=== PATIENT | female | born 1980 | race Caucasian/White ===

== ENCOUNTER 2017-07-14 19:12 | Outpatient (CLI) | payer MEDICAID ==
[~2017-07-14] VITALS: Ht 157.5 cm; Wt 73.0 kg
[~2017-07-14 19:12] MED LIST: AUG875 PO; FERG324 PO; NO RTN MEDS
[2017-07-14 19:47] VITALS: BP 105/61; Ht 157.5 cm; Wt 73.0 kg
[2017-07-14] MEDS ORDERED: PREN-127 PO (20:09)
== END 2017-07-14 20:25 | disposition home or self-care (01) ==
LOC: OB 19:12 → L&D 19:12 → OB 19:12 → UNDOADMIN 19:12 → UNDODISIN 20:25 → L&D 20:25 → EDSTATUS 07-15 11:04
PROVIDERS: ATTEND Obstetrics & Gynecology
DX: O26.893 Other specified pregnancy related conditions, third trimester (principal); Z3A.37 37 weeks gestation of pregnancy
CPT/HCPCS: 84112; G0463; 99213

== ENCOUNTER 2017-07-27 10:59 | Outpatient (CLI) | payer MEDICAID ==
[~2017-07-27] VITALS: Ht 157.5 cm; Wt 72.6 kg
[~2017-07-27 10:59] MED LIST changes: +PREN-127 PO
[2017-07-27 11:44] VITALS: BP 103/66; Ht 157.5 cm; Wt 72.6 kg
== END 2017-07-27 13:20 | disposition home or self-care (01) ==
LOC: UNDOADMIN 10:59 → OB 10:59 → L&D 10:59 → UNDODISIN 13:20 → L&D 13:20 → EDSTATUS 08-01 07:14
PROVIDERS: ATTEND Student in an Organized Health Care Education/Training Program
DX: O26.893 Other specified pregnancy related conditions, third trimester (principal); Z3A.39 39 weeks gestation of pregnancy
CPT/HCPCS: 84112; G0463; 99213

== ENCOUNTER 2017-07-29 05:06 | Inpatient (IN) | payer MEDICAID ==
[~2017-07-29] VITALS: Ht 157.5 cm; Wt 72.6 kg
[2017-07-29] MEDS ORDERED: FAMOTIDINE(*) 20MG/50ML PREMIX 50 ML IVPB PRN (05:08)
[2017-07-29] MEDS ORDERED: OXYTOCIN 30 UNIT/D5LR 500 ML 500 ML IV PRN ×2 (05:08)
[2017-07-29] MEDS ORDERED: ceFAZolin(*) 2GM/D5W 50ML 50 ML IVPB PRN (05:08)
[2017-07-29] MEDS ORDERED: METOCLOPRAMIDE 10 MG/2 ML SDV IVP PRN (05:10)
[2017-07-29] MEDS ORDERED: TERBUTALINE SULF 1 MG/ML VIAL SUBQ PRN (05:10)
[2017-07-29] MEDS ORDERED: LIDOCAINE/SOD BICARB 8.4% SYR SC PRN (05:10)
[2017-07-29] MEDS ORDERED: fentaNYL CITR 100 MCG/2 ML AMP IVP PRN (05:10)
[2017-07-29] MEDS ORDERED: cefOXitin/DEX(*) 2GM/50ML PREM 50 ML IVPB PRN (05:10)
[2017-07-29] MEDS ORDERED: LIDOCAINE 1% LOCAL 300 MG/30ML INJ PRN ×2 (05:10)
[2017-07-29] MEDS: LR(*) 1000 ML BAG 1,000 ML IV SCH ×2 (05:49→10:38)
[2017-07-29 06:00] VITALS: BP 105/60; Ht 157.5 cm; Wt 72.6 kg
[2017-07-29] MEDS ORDERED: PENICILLIN G 5 MILLUN/100 ML 100 ML IVPB ONE (06:00)
[2017-07-29 06:03] LABS: PLATELET COUNT, AUTOMATED 226 K/uL (150-450)
[2017-07-29] MEDS ORDERED: BUPIVACAINE 0.25% MPF INJ EPI PRN (07:40)
[2017-07-29] MEDS ORDERED: fentaNYL CITR 100 MCG/2 ML AMP IT PRN (07:40)
[2017-07-29] MEDS ORDERED: FENTANYL/ROPIVACAINE 100 ML BAG EPI PRN (07:40)
[2017-07-29] MEDS ORDERED: LIDOCAINE/PF 2% 200MG/10ML AMP 200 MG/10 ML AMPUL EPI PRN (07:40)
[2017-07-29] MEDS ORDERED: BUPIVACAINE 0.5% INJ 30ML VIAL EPI PRN (07:40)
[2017-07-29] MEDS ORDERED: LIDO/EPI 2% MPF 1:200,000 20ML EPI PRN (07:40)
[2017-07-29] MEDS ORDERED: EPIDURAL KEYS XX PRN (08:00)
--- NOTE | 2017-07-29 08:33 | History & Physical ---
History of Present Illness Age of Patient: 36 : 5 Para or TPAL: 2021 EDC per LMP: Aug 01, 2017 EDC per U/S: Jul 30, 2017 Estimated Gestational Age: 39.4 Chief Complaint Contractions History of Present Illness Pt is a 36 y/o @ 39-4/7 weeks gestation who presents to L&D for an Elective IOL. Pt does report painful contractions since Saturday but her cervical exam is unchanged from Saturday. Pt denies any loss of amniotic fluid. Good movement. No vaginal bleeding. History Patient's Blood Type: A Positive Rubella Status: Immune Group B Strep Screen: Positive Obstetrical History: X 2 Past Medical History: Non contributory. Allergies: Coded Allergies: No Known Allergies (Verified Allergy, Mild, 09/18/10) Social History: Denies X 3. . Lives in [facility] Home Meds Reported Medications Vits W-Ca,Fe,Fa(<1MG) ( VITAMINS) 1 Each Tablet, 1 EACH PO DAILY, TAB 07/14/17 Review of Systems All Systems Reviewed/Normal: Yes, Except as Noted Constitutional: No Fever, No Weight Loss, No Weight Gain, No Chills, No Night Sweats, No Other Neurological: No Syncope, No Confusion, No Weakness, No Dizziness, No Slurred Speech, No Other Eyes: No Vision Change, No Loss of Vision, No Photophobia, No Other ENT: No Hearing Loss, No Sinus Congestion, No Sore Throat, No Ear Ache, No Tinnitus, No Other Cardiovascular: No Chest Pain, No Palpitations, No Orthostatic Hypotension, No Other Respiratory: No Shortness of Breath, No Cough, No Wheezing, No Other Gastrointestinal: No Nausea, No Vomiting, No Diarrhea, No Dysphagia, No Constipation, No Early Satiety, No Hematemesis, No Hematochezia, No Melena, No Abdominal Pain, No Other Genitourinary: No Dysuria, No Hematuria, No Urinary Incontinence, No Other Musculoskeletal: No Pain, No Sprain, No Strain, No Impaired Mobility, No Other Psychiatric: No Depression, No Anxiety, No Other Exam General Exam Vital Signs Vital Signs Date Time Temp Pulse Resp B/P (MAP) Pulse Ox O2 Delivery O2 Flow Rate FiO2 07/29/17 06:00 98.2 89 16 105/60 (75) 96 Room Air General Apperance: Alert/Awake/No Acute Distress Neuro: No Gross deficits Eyes: Normal Extraocular Movement & Vison, PERRLA ENT: Normal Cardiovascular: Regular Rate and Rhythm Respiratory: No Respiratory Distress, Clear to Auscultation Abdomen: Soft, Non-Tender, Non-Distended, Gravid - Non-Tender : Normal Musculoskeletal: No Weakness/Pain Extremities: No Cyanosis,Clubbing or Edema Integumentary: Skin Intact without Lesions or Rash Psychological: Alert & Oriented X3, Appropriate Mood & Affect Vaginal Discharge/Fluid?: Clear Fluid Cervical Dialation: 4 Cervical Effacement (%): 50 Cervical Consistency: Moderate Cervical Position: Mid Station: -2 Presentation: Vertex Uterine Contractions(Q min): 2 Uterine Contraction Strength: Moderate UC Resting Tone: Soft Fetus Feeling Movement?: Yes Estimated Weight(grams): 3000 Heart Tones: 145 Heart Tone Variabilty: Moderate FHT Accelerations: 15X15 FHT Decelerations: None FHT Category: I Medical Decision Making Data Points Result Diagram: 07/29/17 0544 Pre-Admit Course Medical Record Review: Yes VTE Prophylasis: Adult Deep Vein Thrombosis/Pulmonary: No Assessment and Plan PHARMACY MANAGER Assessment: Stable Problems: (1) Elective induction of labor planned Assessment & Plan: Currently on 4 mU/min of oxytocin and s/p amniotomy. Clear fluid, small amount. (2) Group B streptococcal carriage complicating Assessment & Plan: Pt has already received PCN X 1 dose. Will continue every 4 hours. ANSELMO WILSON DO Jul 29, 2017 08:33
[2017-07-29] MEDS: PENICILLIN G 2.5 MILLUN/100 ML 100 ML IVPB SCH ×2 (09:33→13:59)
--- NOTE | 2017-07-29 13:53 | Anesthesia OB Pre-Anes Eval ---
History of Present Illness Anesthesia Start Date: Jul 29, 2017 Anesthesia Start Time: 10:40 OB Anesthesia Diagnosis: induction - elective Complications: None known EDC: Aug 01, 2017 : 5 Para: 2 Vital Signs: Vital Signs Date Time Temp Pulse Resp B/P (MAP) Pulse Ox O2 Delivery O2 Flow Rate FiO2 07/29/17 06:00 98.2 89 16 105/60 (75) 96 Room Air Pain Ratin Heart Tones: WNL Result Diagram: 07/29/17 0544 Height (Inches): 62.00 Weight (Pounds): 160 BMI Calculated: 29.26 Past Medical History Medical History: no pertinent history Surgical History: no surgical history Attended Childbirth Classes?: No Hx Anesthesia Reactions: No Hx Family Anesthesia Reaction: No Current Medications: pitocin Home Meds Reported Medications Vits W-Ca,Fe,Fa(<1MG) ( VITAMINS) 1 Each Tablet, 1 EACH PO DAILY, TAB 07/14/17 Allergies: Coded Allergies: No Known Allergies (Verified Allergy, Mild, 09/18/10) Anesthesia OB ROS Neurological: No migraines/headaches, No seizures, No neuropathy ENT: Denies Tooth caps, Denies Loose teeth, Denies Chipped teeth, Denies Dentures, Denies Bridges, Denies Retainers, Denies Veneers, Denies Implants, Denies Tongue ring Pulmonary: No asthma, No smoker (pks/day/yrs) Airway Class: ll Cardiovascular ROS: No edema, No arrhythmia GI ROS: clear liquids Last Solids Date: Jul 29, 2017 Last Solids Time: 05:00 ROS: No Herpes, No STD(s), No Liver Disease, No Renal Disease Endocrine ROS: No diabetes, No gestational diabetes, No thyroid disorder Musculoskeletal ROS: No low back pain, No low back injury, No scoliosis ASA Classification: 2 Assessment and Plan Anesthesia Plan: CSE Assessment Past Medical, Surgical, Family and Obstetric Histories reviewed. Please see ACOG chart. Epidural anesthesia risks, complications and benefits explained to patient's satisfaction for labor and vaginal delivery and/or section. General anesthesia risks and benefits explained to patient's satisfaction. Questions invited, none asked. Pt. states she is very afraid of needles. LESLEY SANTORO CRNA Jul 29, 2017 13:53
--- NOTE | 2017-07-29 13:56 | Procedure Note ---
Anesthetic Placement Note Anesthesia Plan: CSE Permit for Anesthesia Signed: Yes Anesthesia Technique: Patient Sitting Anesthesia Prep: Chlorhexidine Interspace: L 3-4 Local Anesthetic: 1% Lidocaine, 25 Gauge Needle Amount Local - cc's: 2 Anesthesia Needle: 17g Touhy/Schliff Anesthesia Attempts: 1 Loss of Resistance: Air Depth of LOS (cm): 5 Epidural Needle Placement: No CSF, No Blood, No Parasthesia Intrathecal Needle: 27 Gauge Pencan Cerebral Spinal Fluid: Yes, Clear Catheter Insertion (cm): 7 Catheter Type: Valero - Spring Wound Epidural Dressing: Tegaderm, Adhesive Jefferson Anesthesia Tray: Lot Number ([id number]), Expiration Date, Reference Number ( [id number]) Anesthesia Medications: Intrathecal Dose: mcg Fentanyl (15), mg Marcaine MPF (1.75), Time (1102) Epidural Test Dose: 1.5 Lido/Epi (1:200,000), Dose - mL (2), Time (1132), Negative Epidural Loading Dose: 0.2% Ropivicaine, With Fentanyl 2mcg/ml, Dose - ml (5), Time (1132) Epidural Infusion: 0.2% Ropivicaine, With Fentanyl 2mcg/ml, Start Time: (1132) Epidural Pump Setting: Bolus Dose - mL, Lockout - Minutes (20), Maintenance Rate - mL/hr (4), Maximum per Hour - mL (19) Complications: None Comment: Vital signs stable. Patient comfortable and condition stable. LESLEY SANTORO CRNA Jul 29, 2017 13:56
--- NOTE | 2017-07-29 13:58 | Anesthesia Progress Note ---
Progress/Maintenance Anesthesia Note Date: Jul 29, 2017 Anesthesia Note Time: 13:30 Pain Intensity: 1 Pump: On Pump Rate (ML/HR): 4 Sensory Level: T-12 Motor Level: Bending Knees-Bilateral Dilatation: 10 Position: Left, Tilt Drug Bolus: 0.5% Marcaine (3ml), Other (Fentenyl 50 mcgs) Assessment and Plan Assessment Bolus for laboring down and delivery given. Pt. feeling strong pressure. LESLEY SANTORO CRNA Jul 29, 2017 13:58
[2017-07-29] MEDS ORDERED: HYDROCORTISONE 2.5% CR 30GM TB PR PRN (15:20)
[2017-07-29] MEDS ORDERED: MAGNESIUM HYDROXIDE* 30ML UDCP PO PRN (15:20)
[2017-07-29] MEDS ORDERED: LANOLIN OINT 7 GM TUBE TP PRN (15:20)
[2017-07-29] MEDS ORDERED: GLYCERIN/WITCH HAZEL LEAF 1 PK TP PRN (15:20)
[2017-07-29] MEDS ORDERED: APAP/HYDROCODONE 325/5 TAB PO PRN (15:20)
[2017-07-29] MEDS ORDERED: BENZOCAINE 20% 60 ML BTL TP PRN (15:20)
[2017-07-29] MEDS ORDERED: ACETAMINOPHEN 325 MG TAB PO PRN (15:20)
--- NOTE | 2017-07-29 15:38 | OB Delivery Note ---
Delivery Note Vaginal Delivery Type: Spont. Vaginal Delivery Delivery Date: Jul 29, 2017 Delivery Time: 14:56 Estimated Gestational Age(wks): 39.4 Length of Labor Stage I (hrs): 9 Length of Labor Stage II (hrs): 1 Labor Stage III (minutes): 9 Delivery Anesthesia: Epidural Infant Sex: Female Infant Weight (gms): 3888 (8#9oz) [place] Apgars: 1 Minute (8), 5 Minute (9) Repair Needed: 2nd Degree Estimated Blood Loss: 400 Delivery Complications: Shoulder Dystocia (under 1 minute, relieved with Grayson and Suprapubic pressure) Farm Equipment Operator in Attendence: ANSELMO Salcido DO Jul 29, 2017 15:38
--- NOTE | 2017-07-29 15:48 | Anesthesia Progress Note ---
Progress/Maintenance Anesthesia Note Date: Jul 29, 2017 Anesthesia Note Time: 15:30 Pain Intensity: 1 Pump: Off Sensory Level: T-12 Motor Level: Bending Knees-Bilateral Dilatation: 10 Position: Semi-Fowlers Assessment and Plan Assessment Excellent tolerance of delivery and repair work. Empty syringe attached to epidural catheter. RN agrees to remove with ambulation. Patient instructed the first ambulation is to be with help of nursing staff. Instructed to preform deep knee bends at bedside before walking. Anesthesia Stop Day: Jul 29, 2017 Anesthesia Stop Time: 15:30 LESLEY SANTORO CRNA Jul 29, 2017 15:48
--- NOTE | 2017-07-29 16:17 | Anesthesia Progress Note ---
Progress/Maintenance Anesthesia Note Date: Jul 29, 2017 Anesthesia Note Time: 16:10 Pain Intensity: 0 Pump: Off Assessment and Plan Epidural Catheter Removal: Removed Catheter Intact, Yes, Removed by: (Wali Miner CRNA) Removal Date: Jul 29, 2017 Removal Time: 16:10 LSELEY MINER CRNA Jul 29, 2017 16:17
[2017-07-29] MEDS: IBUPROFEN 800 MG TAB PO SCH (17:26)
[2017-07-29] MEDS ORDERED: LR(*) 1000 ML BAG 1,000 ML ONE (17:28)
[2017-07-29 19:30] VITALS: BP 115/72
[2017-07-29] MEDS: DOCUSATE CALCIUM 240 MG CAP PO SCH (21:35)
[2017-07-29 23:10] VITALS: BP 101/57
[2017-07-30] MEDS: IBUPROFEN 800 MG TAB PO SCH ×3 (01:10→17:05)
[2017-07-30 03:05] VITALS: BP 99/56
[2017-07-30 07:10] VITALS: BP 106/55
--- NOTE | 2017-07-30 07:14 | OB/GYN Progress Note ---
OB Subjective Progress Notes Subjective Doing good this morning. Reports pain controlled with PO pain medications. Tolerating regular diet. Ambulatory. Voiding with out any difficulty. . Lochia appropriate. GI: NEG Nausea, NEG Vomiting, NEG Flatus, NEG Bowel Movement : Voiding Well, Vaginal Bleeding, Moderate Pain: Mild, Tolerating PO Pain Meds Neurological: No Headache, No Other Eyes: No Visual Disturbances OB Objective Physical Exam Vital Signs Date Time Temp Pulse Resp B/P (MAP) Pulse Ox O2 Delivery O2 Flow Rate FiO2 07/30/17 03:05 97.7 84 15 99/56 (70) Room Air 07/29/17 06:00 96 General Appearance: Alert/Awake/No Acute Distress Neurological: No Gross deficits Eyes: Normal Extraocular Movement & Vison, PERRLA ENT: Normal Cardiovascular: Normal Rhythm & Peripheral Pulses Respiratory: No Respiratory Distress, Clear to Auscultation Abdomen: Soft, Non-Tender, Non-Distended Musculoskeletal: No Weakness/Pain Extremities: No Cyanosis,Clubbing or Edema Integumentary: Skin Intact without Lesions or Rash Psychological: Alert & Oriented X3, Appropriate Mood & Affect Result Diagram: 07/30/17 0540 Assessment and Plan WAREHOUSE ANALYST Assessment: Stable WAREHOUSE ANALYST Plan: Routine Post- Care Problems: (1) Elective induction of labor planned Status: Resolved Assessment & Plan: Doing good PPD # 1. Pt given option to go home if baby is discharged. Pt to continue PP care. (2) Group B streptococcal carriage complicating ANSELMO WILSON DO Jul 30, 2017 07:14
[2017-07-30] MEDS ORDERED: LOR5/325 PO (07:15)
[2017-07-30] MEDS ORDERED: IBUP800T37 PO (07:15)
--- NOTE | 2017-07-30 07:18 | OB/GYN Discharge Summary ---
Discharge Summary Reason for Hosp/Final Diag: (1) Elective induction of labor planned Status: Resolved Hospital Course & Plan: Pt presented for a scheduled IOL. Pt was started on oxytocin and underwent amniotomy and progressed to complete plus 2. After a few pushes delivered a live born female after a 1 minute shoulder dystocia. Pt remained in the hospital for her post care and was discharged home with the infant. (2) Group B streptococcal carriage complicating [place] Vital Signs Vital Signs Date Time Temp Pulse Resp B/P (MAP) Pulse Ox O2 Delivery O2 Flow Rate FiO2 07/30/17 03:05 97.7 84 15 99/56 (70) Room Air 07/29/17 06:00 96 Weight (Pounds): 160 Result Diagram: 07/30/17 0540 Condition: Improved Discharge: Home Home Meds Active Scripts Ibuprofen (IBUPROFEN) 800 Mg Tablet, 800 MG PO Q8H, #30 TAB 0 Refills Prov:ANSELMO WILSON DO 07/30/17 Hydrocodone Bit/Acetaminophen (HYDROCODON-ACETAMINOPHEN 5-325) 1 Each Tablet, 1- 2 EACH PO Q4H Y for PAIN, #20 TAB 0 Refills Prov:ANSELMO WILSON DO 07/30/17 Reported Medications Vits W-Ca,Fe,Fa(<1MG) ( VITAMINS) 1 Each Tablet, 1 EACH PO DAILY, TAB 07/14/17 [facility] [phone], Dr. Wilson [phone] Follow up in: 6 wks PP or PO Discharge Diet: As Tolerates, Resume Prior Admit Diet, Increase Fluid Intake Discharge Activity: As Tolerates, Pelvic Rest ANSELMO WILSON DO Jul 30, 2017 07:18
[2017-07-30] MEDS: DOCUSATE CALCIUM 240 MG CAP PO SCH (08:32)
[2017-07-30 11:00] VITALS: BP 102/61
--- NOTE | 2017-07-30 11:26 | Anesthesia Post Eval Note ---
Anesthesia Post Eval Note Vital Signs Date Time Temp Pulse Resp B/P (MAP) Pulse Ox O2 Delivery O2 Flow Rate FiO2 07/30/17 11:00 98.3 81 15 102/61 (75) 92 Room Air Pt able to participate in Eval: Yes Cardiovascular Status: Satisfactory Respiratory Status: Satisfactory Pain Managment: Satisfactory PO Nausea/Vomiting: Satisfactory Temperature Management: Satisfactory Mental Status: Satisfactory, Alert, Oriented X3 Post-Op Hydration Status: Satisfactory, Tolerating PO Well, Voiding w/o Difficulty Anesthesia Type: CSE Anesthesia Tolerance: Tolerated procedure well without apparent anesthetic complications. LP site clear, no redness or edema. Denies headache or any residual paresthesia. Vital Signs Stable, Patient comfortable and condition stable. LESLEY SANTORO CRNA Jul 30, 2017 11:26
[2017-07-30] MEDS ORDERED: MEASLES,MUMP,RUBELLA VAC 0.5ML SUBQ ONE (15:20)
[2017-07-30] MEDS ORDERED: DIPHTH/TETANUS/ACEL. PERTUSSIS IM ONLY ONE (15:20)
[2017-07-30] MEDS ORDERED: INFLUENZA VIRUS VAC 0.5 ML SYR IM ONLY ONE (15:20)
[2017-07-30 15:50] VITALS: BP 114/68
--- NOTE | 2017-07-30 16:40 | DELIVERY NOTE ---
DELIVERY DATE: July 29, 2017 SURGEON: Harpreet Storey DO ANESTHESIA: Epidural PREOPERATIVE DIAGNOSES 1. A 36-year-old 5, para 2 at 39-4/7 weeks gestation. 2. Induction of labor. POSTOPERATIVE DIAGNOSES 1. A 36-year-old 5, para 2 at 39-4/7 weeks gestation. 2. Induction of labor. 3. Delivery. PROCEDURE Spontaneous vaginal delivery with repair of second degree midline laceration. FINDINGS Live born female infant at 1456 hours with Apgars of 8 and 9, weighing 3888 g, 8 pounds 9 ounces. Three vessel cord, intact placenta over a second degree midline laceration. COMPLICATIONS Shoulder dystocia under one minute, relieved with Grayson and suprapubic pressure. Right shoulder was anterior shoulder. PATHOLOGY None. COUNTS Correct times two for all needles, laps, sponges and instruments. CONDITION Stable times two. Mother and infant remained in LDR. ESTIMATED BLOOD LOSS 400 mL LABOR SUMMARY Patient is a 36-year-old 5, para 2 at 39-4/7 weeks gestation who presents to Labor and Delivery with the chief complaint of needing an elective induction of labor. Patient was 4 cm, started on OxyContin. She was also noted to be GBS positive and did receive multiple doses of penicillin G IV throughout the induction process. Patient did undergo amniotomy with clear amniotic fluid. She continued to progress to complete and +2 station. After approximately five minutes of pushing the delivery team was called assembled. DELIVERY SUMMARY The patient was placed in the dorsal lithotomy position, prepped and draped in the usual sterile manner. Upon return of pushing the infant's head delivered in a controlled manner. There was noted some retraction of the infant's head. At this point the surgeon's fingers were placed inside the vagina and noted anterior shoulder was easily rotated forward from behind the shoulder. With the shoulder rotated Grayson position was asked for and achieved, as well as suprapubic pressure. With suprapubic pressure and Grayson the anterior shoulder delivered followed by the posterior shoulders. The remainder of the infant's body then delivered spontaneously. Mouth and nose were bulb suctioned. A vigorous female was then placed on the maternal abdomen. The infant remained there for approximately two minutes, at which time the cord was clamped times two and cut. With the cord cut, the nursing staff continued to attend to the infant. The remained on the maternal abdomen. Cord gases were obtained and the placenta delivered spontaneously with gentle cord contraction. Oxytocin was infused to help with uterine tone. The uterus was massaged and deemed firm. Upon inspection of the perineum, vagina, cervix and labia, it was noted that there was a second degree midline laceration. This was repaired with a 3-0 Vicryl in the usual manner. With the laceration repaired, hemostasis was noted. The patient was cleaned. The labor bed was reassembled, and mom and baby allowed to continue to kruger. GEORGE
== END 2017-07-30 18:00 | disposition home or self-care (01) | DRG 775 ==
LOC: OB 05:06
PROVIDERS: ADMIT Obstetrics & Gynecology; ATTEND Obstetrics & Gynecology
PROC: 10E0XZZ Delivery of Products of Conception, External Approach (ICD-10-PCS; principal; 2017-07-29)
PROC: 0KQM0ZZ Repair Perineum Muscle, Open Approach (ICD-10-PCS; 2017-07-29)
PROC: 10907ZC Drainage of Amniotic Fluid, Therapeutic from Products of Conception, Via Natural or Artificial Opening (ICD-10-PCS; 2017-07-29)
PROC: 3E033VJ Introduction of Other Hormone into Peripheral Vein, Percutaneous Approach (ICD-10-PCS; 2017-07-29)
DX: O99.824 Streptococcus B carrier state complicating childbirth (principal); O66.0 Obstructed labor due to shoulder dystocia; O70.1 Second degree perineal laceration during delivery; Z37.0 Single live birth; Z3A.39 39 weeks gestation of pregnancy; Z23 Encounter for immunization
CPT/HCPCS: 36415; 85025; 85027; 86850; 86900; 86901; 90471; 90715; J2540; J2590; J3010; J7120; S0020